=== PATIENT | male | born 1980 | race Caucasian/White ===

== ENCOUNTER 2017-07-11 07:50 | Day surgery (SDC) | payer BC ==
--- NOTE | 2017-07-03 23:10 | HP ---
CC: Dr. Mendez * HISTORY AND PHYSICAL: DATE OF PLANNED ADMISSION AND SURGERY: 07/11/17 HISTORY OF PRESENT ILLNESS: Mr. Luis is a 36-year-old white male who has primary infertility, hypofertility, and left varicocele for surgical repair. Mr. Luis is to a 38-year-old. His had carcinoma of the colon diagnosed in 2013, treated with surgery followed by chemotherapy. She has done well and has no recurrent disease. The couple have been trying actively for a baby for the last year without success. The patient was previously seen in our office in 2012 because of left scrotal discomfort and at that time, the only positive finding was a left varicocele. The patient has been minimally symptomatic from the varicocele having no significant pain. As work up of the infertility, the patient was evaluated in my office and had a semen analysis, which showed a sperm concentration of 9 million/ cc and motility of 65%. He had a previous semen analysis which also showed hypofertility. Examination in my office showed a grade 2 to 3 left varicocele and grade 1 right varicocele. This was confirmed on scrotal ultrasound. The couple had IUI's without success. PAST MEDICAL HISTORY AND SYSTEM REVIEW: Otherwise completely negative. He is in excellent health. MEDICATIONS: He is on no chronic medications. ALLERGIES: Denies any allergies to medication. 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 PHYSICAL EXAMINATION GENERAL: Pleasant, healthy, and fit-looking young man with normal male sexual characteristics and no gynecomastia. LUNGS: Normal. HEART: Normal. ABDOMEN: Normal. EXTERNAL GENITALIA: He is circumcised. No penile lesions. Normal testes. There is a grade 2 to 3 left varicocele and a grade 1 right varicocele. The varicoceles decompress in the supine position. No inguinal hernias noted. IMPRESSION: Hypofertility and primary infertility with a left varicocele and non-clinically significant right varicocele. PLAN: Left varicocele repair through subinguinal approach. I discussed the operation in detail with the patient. Some of the potential complications including infection, hematoma, and 10% incident of recurrence. I also discussed the small risk of testicular atrophy or hydrocele. The patient also understands that his fertility might not improve after the varicocele repair and the couple may still need assisted fertility procedures. All his questions were answered. [id number]/[facility] #: [id number] [facility]
[~2017-07-11 07:50] MED LIST: Buffered Lidocaine 0.9% SYRIN* 5 ML/SYR SYRINGE INTRADERM ONE; Bupivacaine 0.5% SDV PF* 30 ML VIAL ONE; Sodium Citrate/Citric Acid* 15 ML UDC PO ONE
[2017-07-11] MEDS ORDERED: Sodium Citrate/Citric Acid* 15 ML UDC ONE (08:13)
[2017-07-11] MEDS ORDERED: ceFAZolin 2 GM PREMIX (*) 2 GM/50 ML BAG IVPB ONE (08:13)
[2017-07-11] MEDS ORDERED: Midazolam* 1 MG/ML 2 ML VIAL (2 MG) ONE (10:10)
[2017-07-11] MEDS ORDERED: fentaNYL* 50 MCG/ML 2 ML VIAL (100 MCG VIAL) ONE (10:11)
[2017-07-11] MEDS ORDERED: Dexamethasone IV* 4 MG/ML 1 ML (4 MG) ONE (10:11)
[2017-07-11] MEDS ORDERED: Ketorolac INJ* 30 MG/ML 1 ML VIAL ONE (10:11)
[2017-07-11] MEDS ORDERED: Propofol* 10 MG/ML 20 ML BTL IV PUSH ONE (10:11)
[2017-07-11] MEDS ORDERED: Lidocaine 2% PF * 5 ML VIAL ONE (10:11)
[2017-07-11] MEDS ORDERED: fentaNYL* 50 MCG/ML 2 ML VIAL (100 MCG VIAL) IV PRN (10:44)
[2017-07-11] MEDS ORDERED: Ondansetron INJ* 2 MG/ML VIAL IV PRN (10:44)
[2017-07-11] MEDS ORDERED: oxyCODONE/Acetamin 5/325 MG* TAB ONE (12:19)
[2017-07-11 12:31] VITALS: BP 127/86
--- NOTE | 2017-07-14 17:56 | OP ---
DATE OF OPERATION: 07/11/17 - [facility] DATE OF : 84 SURGEON: Dr. Mak. PASSENGER BARGE MASTER: Dr. Buitrago. ANESTHESIOLOGIST: Lonnie Billy DO ANESTHESIA: General. PRE-OP DIAGNOSES: 1. Primary infertility. 2. Left varicocele. POST-OP DIAGNOSES: 1. Primary infertility. 2. Left varicocele. OPERATIVE PROCEDURE: Left varicocele repair (subinguinal approach). INDICATIONS FOR PROCEDURE: Mr. Luis is a 36-year-old white male who is to a 38-year-old. The couple have been trying for for the last 6 months without success. Workup showed a grade III left varicocele, a clinically nonsignificant grade I right varicocele, and hypofertility with a sperm concentration of 9 million per cc with a motility of 60%. Because of the above history and findings and after discussing the options of management including IVF, the patient elected to proceed with left varicocele repair to improve his fertility potential. PATHOLOGY: Pathology exam under anesthesia confirmed both testes to be normal in size and consistency. There was a decompressed left varicocele. Upon exploration of the left spermatic cord, there was no hernia sac noted. There was a large cluster of veins within the cremasteric fibers. There were 2 branches of the internal spermatic artery and multiple branches of the internal spermatic vein with 2 dominant ones. No other abnormalities were noted. DESCRIPTION OF PROCEDURE: After successful general anesthesia, the patient was placed in the supine position and was prepped and draped for an inguinal incision. A 2-cm incision was carried just medial to the level of the left external inguinal ring. The incision was deepened through the Akiko's fascia. The spermatic cord was then identified, circumferentially dissected within its cremasteric fibers and a Anitra drain applied around it and the cord was brought out through the incision. The spermatic fascia was then opened. The vas deferens and its vessels were identified, isolated, retracted with a vessel loop and preserved. The 2 branches of the internal spermatic artery were identified using Doppler. The branches of the internal spermatic vein were then identified, dissected and ligated with 4-0 Vicryl and divided. Several lymphatic vessels were identified and preserved. The large cluster of vein noted in the cremasteric fibers was divided and ligated with 2-0 Vicryl. After careful inspection, there were no branches of the internal spermatic vein that were not ligated and divided. There was good Doppler signal from the 2 branches of the internal spermatic artery. The vas deferens and its vessels were all intact. There was very good hemostasis. The spermatic cord was then replaced in its anatomical position. A total of 6 to 7 cc of 0.5% Marcaine without epinephrine were used to infiltrate the incision for postoperative analgesia. The incision was then closed using 4-0 Vicryl for the Akiko's fascia and the subcutaneous tissue and the skin was closed using running subcuticular suture of 4- 0 chromic. Steri-Strips were applied. The patient tolerated the procedure well and left the operating room in good condition. There was no blood loss, no specimen, and all the counts were correct. [id number]/[facility] #: [id number] MTDD
== END 2017-07-11 12:39 | disposition home or self-care (01) ==
LOC: OR 07:50
PROVIDERS: ATTEND Urology
DX: N46.8 Other male infertility (principal); I86.1 Scrotal varices
CPT/HCPCS: A9270-GY; J0690; J1100; J1885; J2250; J2704; J3010